=== PATIENT | male | born 1980 | race Caucasian/White ===

== ENCOUNTER 2018-01-08 09:52 | Outpatient (CLI) | payer OTHER ==
--- NOTE | 2018-01-08 13:04 | MRI Report ---
EXAM: LEFT KNEE MRI WITHOUT CONTRAST EXAM DATE: 01/08/2018 10:36 AM. CLINICAL HISTORY: Hyperextension injury of the left knee in September 2017 while playing basketball. A nterior and posterior pain. COMPARISON: None. TECHNIQUE: Multiplanar, multisequence T1-weighted and fluid-sensitive sequences of the knee without c ontrast. Other: None. FINDINGS: Bones: No fractures or subluxations. No marrow edema. No bone lesions. Articular Cartilage: The patellar cartilage is intact. The inferior central trochlear cartilage is se verely thinned. The medial and lateral compartment articular cartilage is intact. Medial Meniscus: The medial meniscus is intact. Lateral Meniscus: The lateral meniscus is intact. Cruciate Ligaments: The anterior and posterior cruciate ligaments are intact. Collateral Ligaments: The medial collateral and lateral collateral ligamentous structures are intact. Tendons: The quadriceps, patellar, semimembranosus, and popliteus tendons are unremarkable. Musculature: No edema or fatty atrophy. Other: No effusion. No popliteal cyst. No loose bodies. The medial and lateral retinacula are intact . The subcutaneous tissues and fat pads are unremarkable. IMPRESSION: Inferior central trochlear chondromalacia. [facility] SECTION Referring Provider Line: [phone] SITE ID: [id number]
== END 2018-01-08 09:53 | disposition home or self-care (01) ==
LOC: DI 09:52
PROVIDERS: ATTEND Family Medicine
DX: M94.262 Chondromalacia, left knee (principal)

== ENCOUNTER 2018-12-31 12:00 | Outpatient (CLI) | payer OTHER ==
--- NOTE | 2018-12-31 17:57 | MRI Report ---
Reason: PAIN IN LEFT KNEE Procedure Date: 12/31/2018 Accession Number: [id number] / [id number] Procedure: MRI - Knee LT W/O CPT Code: FULL RESULT: EXAM: LEFT KNEE MRI WITHOUT CONTRAST EXAM DATE: 12/31/2018 12:40 PM. CLINICAL HISTORY: Pain in left knee. COMPARISON: KNEE LT W/O 01/08/2018 10:15 AM. TECHNIQUE: Multiplanar, multisequence T1-weighted and fluid-sensitive sequences of the knee without contrast. Other: None. FINDINGS: Bones: No fractures or subluxations. No marrow edema. No bone lesions. Articular Cartilage: Some cartilaginous thinning and fissuring is seen at the inferior central trochlear groove, similar to previous. Mild global cartilaginous thinning at the medial compartment without focal defects. Medial Meniscus: The medial meniscus is intact. Lateral Meniscus: The lateral meniscus is intact. Cruciate Ligaments: The anterior and posterior cruciate ligaments are intact. Collateral Ligaments: The medial collateral and lateral collateral ligamentous structures are intact. Tendons: The quadriceps, patellar, semimembranosus, and popliteus tendons are unremarkable. Musculature: No edema or fatty atrophy. Other: No effusion. No popliteal cyst. No loose bodies. The medial and lateral retinacula are intact. The subcutaneous tissues and fat pads are unremarkable. IMPRESSION: 1. Similar exam compared to previous, there is some chondromalacia at the trochlear groove. 2. Menisci, cruciates and collaterals appear unremarkable. 3. No popliteal cyst. No loose bodies. Medial and lateral retinacula are unremarkable. [facility] SECTION
== END 2018-12-31 12:01 | disposition home or self-care (01) ==
LOC: DI 12:00
PROVIDERS: ATTEND Orthopaedic Surgery
DX: M94.262 Chondromalacia, left knee (principal)